=== PATIENT | female | born 1965 | race Caucasian/White ===

== ENCOUNTER → 2020-12-26 06:00 | Outpatient (CLI) | payer MEDICAID, SELFPAY ==
[2020-12-14 14:42] VITALS: BMI 32.1
--- NOTE | 2020-12-26 06:03 | ECHOCS_ITS ---
Reason For Study: Arrhythmia Procedure This was a 2D Doppler, Color Flow transthoracic echocardiogram. Contrast injection was performed. Exam performed in department. Left Ventricle Normal LV size. Left ventricular systolic function is normal. The estimated ejection fraction is 60 %. Stage 1 diastolic dysfunction. No regional wall motion abnormalities noted. Right Ventricle Normal RV size. Normal systolic function. Atria Normal left atrium. Normal right atrium. Mitral Valve Normal mitral valve. Mild (1+) mitral valve insufficiency. Tricuspid Valve Normal tricuspid valve. Mild tricuspid valve insufficiency. Pulmonary artery systolic pressure is 20 mmHg. Aortic Valve Trisinus/trileaflet aortic valve. Mild (1+) aortic valve insufficiency. Pulmonic Valve Normal pulmonic valve. Great Vessels Normal aortic root. The pulmonary artery is normal size. Normal inferior vena cava. Pericardium/Pleural No pericardial effusion. Medication Diluted definity 2ml given slow IV push to enhance endocardial definition. MMode/2D Measurements & Calculations LVIDd: 5.0 cm IVSd: 0.86 cm Ao root diam: 3.0 cm LVIDs: 2.8 cm LVPWd: 0.82 cm RVDd: 2.1 cm FS: 43.7 % LAV(MOD-bp): 29.7 ml LVAd ap4: 25.5 cm2 SV(MOD-sp4): 56.4 ml LAV(MOD-bp) Indexed: 14.8 ml/m2 EDV(MOD-sp4): 81.2 ml LAV(MOD-sp2): 18.6 ml EDV(sp4-el): 83.1 ml LAV(MOD-sp4): 42.3 ml LVAs ap4: 12.1 cm2 ESV(MOD-sp4): 24.8 ml ESV(sp4-el): 23.8 ml EF(MOD-sp4): 69.5 % EF(sp4-el): 71.3 % SV(sp4-el): 59.3 ml LA A4 area: 16.8 cm2 LA dimension(2D): 3.5 cm RA A4 area: 8.5 cm2 Doppler Measurements & Calculations MV E max quinton: 60.8 cm/sec Lat Peak E' Quinton: 8.7 cm/sec Med Peak E' Quinton: 4.6 cm/sec MV A max quinton: 63.8 cm/sec E/E' lat: 7.0 E/E' med: 13.3 MV E/A: 0.95 Ao V2 max: 151.0 cm/sec LV V1 max: 117.0 cm/sec PA V2 max: 89.9 cm/sec Ao max P.1 mmHg LV V1 max P.5 mmHg Ao V2 mean: 96.8 cm/sec Ao mean P.2 mmHg Ao V2 VTI: 29.2 cm TR max quinton: 199.6 cm/sec TR max P.9 mmHg ECHO/Echo Complete W/ Contrast Interpretation Summary Normal LV size. Left ventricular systolic function is normal. The estimated ejection fraction is 60 %. Stage 1 diastolic dysfunction. Mild (1+) aortic valve insufficiency. Contrast injection was performed. Ordering Physician: Massimo Fitzgerald Referring Physician: Laura Dacosta Performed By: Celi Osuna, RDCS, RVT
--- NOTE | 2020-12-26 13:18 | STRESSREP ---
Stress Test Report Exercise myocardial perfusion stress test. 55-year-old lady with a history of restrictive lung disease sleep apnea and gallbladder issues scheduled for cholecystectomy. Resting EKG demonstrates sinus bradycardia with a rate of 57 bpm nonspecific changes noted. Resting blood pressure is 98/64 mmHg. The patient exercised according to the regular [place] protocol for 5 minutes and 15 seconds the maximum heart rate attained was 121 bpm which was 73% of max impacted heart rate. The patient took her atenolol prior to the test. The maximum workload was 7 metabolic equivalents. At rest there were nonspecific ST changes noted and at peak exercise less than 1 mm of downsloping and T wave inversions were noted which did not meet the criteria for ischemia. The test was terminated due to shortness of breath no angina was noted. The peak blood pressure was 120/72 mmHg. Myocardial perfusion protocol. 11.8 mCi of technetium 99m sestamibi was injected at rest. The patient exercised according to the regular [place] protocol for 5 minutes and 15 seconds and at peak exercise 33.1 mCi of technetium 99m sestamibi was injected stress images were obtained stress and rest images were reconstructed and compared in the short axis vertical long and horizontal long axis. Gated images were also obtained. Perfusion SPECT analysis: Review of the stress images demonstrate normal uptake of tracer noted in all areas of the myocardium. The resting images similar demonstrate normal uptake of tracer noted in all areas of the myocardium. No areas of reversibility are noted to suggest ischemia and no previous infarct is noted. Gated SPECT analysis: The gated ejection fraction is 76%. Conclusion: Normal exercise myocardial perfusion stress test at a moderate workload. Preserved ejection fraction. Mild functional aerobic impairment.
== END ==
PROVIDERS: PCP Internal Medicine; Referring Provider Internal Medicine Cardiovascular Disease; Visit Provider Internal Medicine Cardiovascular Disease
DX: Z01.810 Encounter for preprocedural cardiovascular examination (principal); R94.31 Abnormal electrocardiogram [ECG] [EKG]
CPT/HCPCS: 78452; 93017; 93306; A9500; Q9957; A4216; C8929

== ENCOUNTER 2021-01-17 10:02 | Day surgery (SDC) | payer MEDICAID, SELFPAY ==
--- NOTE | 2020-12-04 17:33 | PCM.HP.BLA ---
History and Physical Date of Admission: 12/06/20 Laverne Ng Proper a 55 year old female who presents with RUQ and epigastric pain. She recently underwent EGD and found to have no major pathology. She wishes to proceed with laparoscopic cholecystectomy, possible cholangiograms. ? 10/26/2020 11:41 AM GALLBLADDER ULTRASOUND: Clinical Statement: Abdominal pain. Comparison: None. FINDINGS: The visualized pancreas is unremarkable.] Duct dilatation. The liver measures 20 cm in length. Hepatic parenchymal echogenicity is mildly increased overall with coarsening of the echotexture. No focal liver mass or intrahepatic bile duct dilatation. The common duct diameter is within normal limits at 5 mm. There multiple dependent layering shadowing gallstones within the gallbladder. No gallbladder wall thickening or pericholecystic fluid. Negative sonographic Ch's. No ascites. IMPRESSION: 1. Cholelithiasis. No secondary sonographic features of acute cholecystitis. 2. Enlarged liver with diffuse hepatic steatosis or other nonspecific chronic hepatocellular disease. ? ?? Pain located in the mid-epigastric and radiates intermittently toward the back and sometimes into the lower abdomen. Described as sharp. Abdomen is reported to be tender to touch. Generalized, with worst over RUQ. ? Reporting chronic constipation. She has tried all the OTC laxatives but they just bloat me up bigger and make things worse. This is just the way I have been since I was a kid . Notes suppositories were about the only thing that helps. Reports using Benefiber. No prior use of lactulose. ? She tells me that she can go up to a month without a bowel movement. The last bowel movement was 2 days ago. Describes stool as 3 hard balls and that was it. Reports that she might see a little blood with hard stool. ? Reporting her appetite varies based on bowel routine. Nausea all the time if I am bound up. Goes on to say I choke on food all the time. Taking omeprazole daily. ? ? PAST MEDICAL HISTORY ? Anxiety and depression ? ? Chronic back pain ? ? Constipation ? ? Fibromyalgia ? ? HLD (hyperlipidemia) ? ? Hypotension ? ? Hypothyroidism ? ? Migraine ? ? JC (obstructive sleep apnea) 01/27/2014 ? Restrictive lung disease ? ? TMJ dysfunction 07/03/2017 ? Unspecified sinusitis (chronic) ? ? PAST SURGICAL HISTORY ? DELIVERY ONLY ? 1994 ? COLONOS W/REM POLYP SNARE ? 03/26/12 ? hyperplastic polyp ? EGD W/O BRSH SPECIMEN W/BX ? 03/26/12 ? EXTENSIVE JAW SURGERY ? 1981 ? bilateral TMJ surgery ? FOOT SURGERY HX Bilateral 1985 ? bunion ? REMOVE TONSILS/ADENOIDS,12+ Y/O ? ? ? TOTAL ABD HYSTEREC+LTD NODES ? 2002 ? SHARMILA, left SO; menorrhagia CURRENT MEDICATIONS ? promethazine (PHENERGAN) 25 mg tablet Take 1 tablet by mouth every 6 hours as needed for Nausea/Vomiting. 20 tablet 1 ? atorvastatin (LIPITOR) 10 mg tablet TAKE 1 TABLET BY MOUTH EVERY DAY IN THE EVENING 30 tablet 2 ? omeprazole (PRILOSEC) 40 mg capsule Take 1 capsule by mouth once daily. 30 capsule 5 ? bisacodyl (DULCOLAX, BISACODYL,) 10 mg supp 1 Suppository by RECTAL route once daily as needed. 5 Suppository 5 ? Bisacodyl (LAXATIVE, BISACODYL,) 5 mg tab Please take 1 to 2 tablets 2 times a week 20 tablet 3 ? levothyroxine (SYNTHROID) 88 mcg tablet Take 1 tablet by mouth daily before breakfast. 30 tablet 11 ? cholecalciferol (VITAMIN D-3) 5,000 unit tab Take 1 tablet by mouth once daily. 30 tablet 5 ? traZODone (DESYREL) 100 mg tablet TAKE 2 TABLETS BY MOUTH EVERY DAY AT BEDTIME 180 tablet 3 ? atenolol (TENORMIN) 50 mg tablet Take 1 tablet by mouth once daily. 30 tablet 11 ? venlafaxine ER (EFFEXOR XR) 150 mg 24 hr capsule TAKE 2 CAPSULES BY MOUTH EVERY DAY 180 capsule 3 ? topiramate (TOPAMAX) 100 mg tablet Take 100 mg by mouth twice daily. ? busPIRone (BUSPAR) 5 mg tablet TAKE 1 TABLET BY MOUTH TWICE DAILY NEEDED 60 tablet 1 ? buPROPion SR (WELLBUTRIN SR) 100 mg 12 hr tablet TAKE 1 TABLET BY MOUTH TWICE DAILY 60 tablet 1 ? ? SOCIAL HISTORY: Patient is . She quit smoking 04/2018. Reports her alcohol use as every 2-3 months. ? ? FAMILY HISTORY ? Diabetes Mother ? ? Heart Mother ? ? Cancer Mother ? ? r leg cancer ? Hypertension Mother ? ? Stroke Mother ? ? COPD Father ? ? Emphysema Father ? ? Cancer Sister ? ? Non Hodgkins Lymphoma ? Diabetes Sister ? ? Colon Cancer Maternal Aunt ? ? Diabetes Maternal Aunt ? ? Heart Maternal Grandfather ? ? Skin Cancer Maternal Grandmother ? REVIEW OF SYSTEMS: GENERAL: No weight loss, malaise or fevers RESPIRATORY: Negative for cough, hemoptysis, wheezing, COPD, dyspnea or shortness of breath CARDIOVASCULAR: No chest pain or MCCLELLAN. History of hypotension. GI: As reported above : No history of dysuria, frequency or incontinence CERTIFIED PHARMACY TECH: history of hysterectomy MUSCULOSKELETAL: Fibromyalgia and chronic back pain. .Slightly worse since recently moved and unpacking boxes PSYCH: Positive for depression and anxiety HEMATOLOGY/LYMPHOLOGY Negative for prolonged bleeding, bruising easily or swollen nodes ENDOCRINE: Positive for hypothyroidism NEURO: Migraine headaches ? PHYSICAL EXAMINATION: Blood pressure 110/72, pulse 71, height 168 cm (5' 6.14), weight 90.7 kg (200 lb), SpO2 98 %. General Appearance: Well appearing, alert, in no acute distress, well-hydrated, well nourished. Skin: Skin color, texture, turgor normal, no suspicious rashes or lesions. Head: Normocephalic, no abnormalities. Eyes: Anicteric sclera. Neck: Supple, no adenopathy. Lungs: Lungs clear to auscultation. Heart: RRR without murmur. Abdomen: Abdomen soft, non-tender. Bowel sounds normal. No masses, organomegaly. Extremities: No deformities, edema, skin discoloration Peripheral Pulses: Normal. Neurologic: Gait normal. Sensation grossly intact. ? Impression: upper abd pain 2)cholelithiasis ? Plan: I have discussed the above with the patient. I have offered the patient the procedure of laparoscopic cholecystectomy, possible cholangiograms. I have explained the procedure to the patient. I have counseled the patient as to the risks of the procedure, including but not limited to: infection, bleeding, injury to any blood vessels/nerves, scar tissue, injury to any intraabdominal organs, injury to kidney/ureters, injury to bowel/bladder, injury to the common bile duct/biliary tree, bile leakage, intraabdominal abscess/bleeding, hernias at incisional sites, wound infections, possible open procedure, complications of anesthesia, postoperative pneumonia/cardiac problems/blood clots etc. the patient understands. The patient was offered a surgery/procedure. The provider and patient have discussed in detail the risk of exposure to and/or potential harm posed by the COVID-19 virus with having a surgery/procedure at this time versus the risk of delaying the surgery/procedure. It is not possible to know either the risk of delaying the surgery or procedure or chance of getting an infection with perfect accuracy, but a joint decision was made between the patient and the provider to proceed at this time with the scheduled surgery/procedure. She wishes to proceed. I have answered all questions to the patient?s satisfaction and the patient has no further questions.
--- NOTE | 2020-12-05 12:49 | EKG12_ITS ---
Test Reason : PREOP Blood Pressure : / mmHG Vent. Rate : 057 BPM Atrial Rate : 057 BPM P-R Int : 178 ms QRS Dur : 090 ms QT Int : 418 ms P-R-T Axes : 055 008 242 degrees QTc Int : [address] & T wave abnormality, consider anterolateral ischemia Abnormal ECG Confirmed by CLARE DESAI, SUSAN ([id number]), market editor DICK LAGUERRE ([id number]) on 12/06/2020 9:06:41 AM Referred By: Liz Garduno Confirmed By:SUSAN SPARKS MD
[2020-12-05 14:24] LABS: Hematocrit 38.5 % (37-47); Hemoglobin 12.2 g/dL (12.0-15.0); Mean Corp Hgb Conc 31.7 g/dL (32-36); Mean Corpuscular Hgb 28.6 pg (27.0-32.0); Mean Corpuscular Volume 90.4 fL (81-99); Mean Platelet Vol. 10.7 fl (6.2-12.0); Platelet Count 309 K/mm3 (150-450); RBC Distribution Width CV 13.1 % (11.6-14.6); RBC Distribution Width SD 42.8 fl (35.1-43.9); Red Blood Count 4.26 M/mm3 (4.2-5.4); White Blood Count 7.7 K/mm3 (4.4-11.0)
[2020-12-14 14:42] VITALS: BMI 32.1
--- NOTE | 2021-01-16 18:08 | PCM.HP.BLA ---
History and Physical Date of Admission: 01/17/21 Laverne Napoles presents for laparoscopic cholecystectomy. She was initially scheduled in November 2020, but? surgery was postponed due to anesthesia requesting cardiology consultation. Cardiology consultation was obtained and patient is cleared for surgery. Patient presents with upper abdominal pain and undergone GI workup of the following: GALLBLADDER ULTRASOUND:? Clinical Statement: Abdominal pain.? Comparison: None.? FINDINGS: The visualized pancreas is unremarkable.] Duct dilatation.? The liver measures 20 cm in length. Hepatic parenchymal echogenicity? is mildly increased overall with coarsening of the echotexture. No? focal liver mass or intrahepatic bile duct dilatation. The common duct? diameter is within normal limits at 5 mm.? There multiple dependent layering shadowing gallstones within the? gallbladder. No gallbladder wall thickening or pericholecystic fluid.? Negative sonographic Ch's.? No ascites.? IMPRESSION:? 1. Cholelithiasis. No secondary sonographic features of acute? cholecystitis.? 2. Enlarged liver with diffuse hepatic steatosis or other nonspecific? chronic hepatocellular disease.? ? EGD Impression:? - Normal examined duodenum.? - Gastritis. This was biopsied.? - Normal esophagus.? Colonoscopy Impression:? ?- Preparation of the colon was poor.?- One 6 mm polyp in the proximal sigmoid colon. Resected?and retrieved.?- The examination was otherwise normal.?- The distal rectum and anal verge are normal on?retroflexion view.? ?Pathology -? FINAL DIAGNOSIS? 1.? Antrum, biopsy (A) - Antral mucosa with no diagnostic abnormality.? 2.? 50 cm colon polyp, polypectomy (B) - Severely cauterized colonic mucosa? with features consistent with hyperplastic polyp.? ? Barium enema 04/02/12: IMPRESSION:? Normal single contrast Gastrografin enema.?? ? I have reviewed the procedure and pathology reports, as well as the images, with the patient.? ? Presenting complaint: abdominal pain . ? Pain located in the mid-epigastric and radiates intermittently toward the back and sometimes into the lower abdomen.? Described as sharp. Abdomen is reported to be tender to touch. Generalized, with worst over RUQ. ?? REVIEW OF SYSTEMS: GENERAL: No weight loss, malaise or fevers RESPIRATORY: Negative for cough, hemoptysis, wheezing, COPD, dyspnea or shortness of breath CARDIOVASCULAR: No chest pain or MCCLELLAN. History of hypotension.? 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 .Slightly worse since recently moved and unpacking boxes PSYCH: Positive for depression and anxiety HEMATOLOGY/LYMPHOLOGY Negative for prolonged bleeding, bruising easily or swollen nodes ENDOCRINE: Positive for hypothyroidism NEURO:? Migraine headaches ? PAST MEDICAL HISTORY depression? Chronic back pain? Constipation? Fibromyalgia? HLD (hyperlipidemia)? Hypotension? Hypothyroidism? Migraines? JC (obstructive sleep apnea)01/27/2014 Restrictive lung disease? TMJ [id number]/18/2017 Unspecified sinusitis (chronic)? ? PAST SURGICAL HISTORY DELIVERY ONLY 1994 COLONOS W/REM POLYP SNARE 03/26/12?hyperplastic polyp EGD W/O BRSH SPECIMEN W/BX 03/26/12 EXTENSIVE JAW SURGERY 1981?bilateral TMJ surgery FOOT SURGERY [id number] REMOVE TONSILS/ADENOIDS,12+ Y/O ? TOTAL ABD HYSTEREC+LTD NODES 2003TAH, left SO; menorrhagia ? FAMILY HISTORY FAMILY HISTORY? ?DiabetesMother? ?HeartMother? ?CancerMother? ? ?r leg cancer ?HypertensionMother? ?StrokeMother? ?COPDFather? ?EmphysemaFather? ?CancerSister? ? Non Hodgkins Lymphoma ?DiabetesSister? ?Colon CancerMaternal Aunt? ?DiabetesMaternal Aunt? ?HeartMaternal Grandfather? ?Skin CancerMaternal Grandmother? CURRENT MEDICATIONS ?promethazine (PHENERGAN) 25 mg tabletTake 1 tablet by mouth every 6 hours as needed for Nausea/Vomiting.20 tablet1 ?atorvastatin (LIPITOR) 10 mg tabletTAKE 1 TABLET BY MOUTH EVERY DAY IN THE FVIELLU30 tablet2 ?omeprazole (PRILOSEC) 40 mg capsuleTake 1 capsule by mouth once daily.30 capsule5 ?bisacodyl (DULCOLAX, BISACODYL,) 10 mg supp1 Suppository by RECTAL route once daily as needed.5 Suppository5 ?Bisacodyl (LAXATIVE, BISACODYL,) 5 mg tabPlease take 1 to 2 tablets 2 times a week20 tablet3 ?levothyroxine (SYNTHROID) 88 mcg tabletTake 1 tablet by mouth daily before breakfast.30 dchlge25 ?cholecalciferol (VITAMIN D-3) 5,000 unit tabTake 1 tablet by mouth once daily.30 tablet5 ?traZODone (DESYREL) 100 mg tabletTAKE 2 TABLETS BY MOUTH EVERY DAY AT [id number] tablet3 ?atenolol (TENORMIN) 50 mg tabletTake 1 tablet by mouth once daily.30 ?venlafaxine ER (EFFEXOR XR) 150 mg 24 hr capsuleTAKE 2 CAPSULES BY MOUTH EVERY [id number] capsule3 ?topiramate (TOPAMAX) 100 mg tabletTake 100 mg by mouth twice daily.? ?busPIRone (BUSPAR) 5 mg tabletTAKE 1 TABLET BY MOUTH TWICE DAILY [id number] tablet1 ?buPROPion SR (WELLBUTRIN SR) 100 mg 12 hr tabletTAKE 1 TABLET BY MOUTH TWICE DAILY60 tablet1 ? SOCIAL HISTORY: Patient is . She quit smoking 04/2018.? Reports her alcohol use as every 2-3 months. ?? PHYSICAL EXAMINATION: Blood pressure 110/72, pulse 71, height 168 cm (5' 6.14), weight 90.7 kg (200 lb), SpO2 98 %. General Appearance: Well appearing, alert, in no acute distress, well-hydrated, well nourished. Skin: Skin color, texture, turgor normal, no suspicious rashes or lesions. Head: Normocephalic, no abnormalities. Eyes: Anicteric sclera. Neck: Supple, no adenopathy. Lungs: Lungs clear to auscultation.? Heart: RRR without murmur. Abdomen: Abdomen soft, non-tender. Bowel sounds normal. No masses, organomegaly. Extremities: No deformities, edema, skin discoloration eral Pulses: Normal. Neurologic: Gait normal. Sensation grossly intact. ? Impression: upper abd pain? 2)cholelithiasis? ? Plan: Continue omeprazole..? ?? Hillary? Kait Roque RN SEMICONDUCTOR WAFERS SAW OPERATOR.SHOVEL LOADER OPERATOR Impression: cholelithiasis Discussion/Plan: I have discussed the above with the patient. I have offered the patient the procedure of laparsocopic cholecystectomy, possible cholangiograms. I have explained the procedure to the patient. I have counseled the patient as to the risks of the procedure, including but not limited to: infection, bleeding, injury to any blood vessels/nerves, scar tissue, injury to any intrabdominal organs, injury to kidney/ureters, injury to bowel/bladder, injury to the common bile duct/biliary tree, bile leakage, intraabdominal abscess/bleeding, hernias at incisional sites, wound infections, possible open procedure, complications of anesthesia, postoperative pneumonia/cardiac problems/blood clots etc. the patient understands. The patient was offered a surgery/procedure. The provider and patient have discussed in detail the risk of exposure to and/or potential harm posed by the COVID-19 virus with having a surgery/procedure at this time versus the risk of delaying the surgery/procedure. It is not possible to know either the risk of delaying the surgery or procedure or chance of getting an infection with perfect accuracy, but a joint decision was made between the patient and the provider to proceed at this time with the scheduled surgery/procedure. She wishes to proceed I have answered all questions to the patient?s satisfaction and the patient has no further questions.
[2021-01-17 10:42] VITALS: BP 96/66; PULSE 64; RESP 18; TEMP 36.6; O2SAT 99; BMI 31.6
[2021-01-17] MEDS: Lactated Ringers 1,000 ML 100 ML IV ×2 (10:58→13:11)
[2021-01-17] MEDS: Cefazolin 2 GM in 0.9% Normal Saline 100 ML IV (11:29)
--- NOTE | 2021-01-17 11:30 | RAD_ITS ---
STUDY: INTRAOPERATIVE CURRENT EXAM. REASON FOR EXAM: Female, 55 years old. LAPAROSCOPIC, CHOLECYSTECTOMY WITH IOC FLUOROSCOPY TIME (if supplied): ( 2 seconds ) minutes/seconds. One image was submitted. TECHNIQUE: An intraoperative cholangiogram was performed by the surgeon. Imaging was submitted. COMPARISON: None. FINDINGS: Limited examination. The distal portion of the common bile duct is visualized and is unremarkable. Contrast is seen within the duodenum. RAD/Cholangiogram/ O R,Initial IMPRESSION: Limited study. The distal portion of the common bile duct is unremarkable. Electronically Signed: Bruno Earl MD at 12:51 EDT , Service support ,
--- NOTE | 2021-01-17 11:30 | GALL_PTH ---
PATIENT: DESIRAE DELEON [place] [facility] [facility] [id number] AGE/SX: 55/F ROOM: RE01/17/[address]: Dr. Liz Garduno MD : [id number] BED: DIS: 01/17/2021 SPEC #: [id number] RECD: 01/17/21 13:26 STATUS: ERICA REFaheem #: [id number] JADA: 01/17/21 11:[address]: Liz Garduno DEPT: SURGICAL PATHOLOGY RECD BY: Cecilia Crowe ENTERED: 01/18/21 09:24 SP TYPE: TUYET DAVILA DR: Dr. Laura Dacosta MD Tissues: Gallbladder, NOS Procedures: Surgery Specimen Level III HEADER OPERATION: Laparoscopic cholecystectomy PRE-OP DIAGNOSIS: Cholelithiasis TISSUE SUBMITTED: Gallbladder and contents MICROSCOPIC DIAGNOSIS Gallbladder, cholecystectomy: Chronic cholecystitis and cholelithiasis. AM:yunior 01/19/2021 MICROSCOPIC DESCRIPTION Slides are reviewed. GROSS DESCRIPTION Received is one container labeled with the patient's name and designated gallbladder and contents. The specimen consists of a previously opened gallbladder measuring 8 cm in length and up to 3.5 cm in diameter. The external surface is pink-ohara, smooth and glistening for the most part. Focally it is granular, hemorrhagic and contains cautery artifact. The gallbladder contains green-yellow mucoid bile and multiple greenish stones measuring in aggregate 6 x 5.5 x 2 cm and 0.3 to 0.5 cm in greatest dimension. Also present in the container are multiple fragments of stone and sludge material. A few of the stones are also present in the cystic duct. The mucosa is bile-stained and without any mass lesions. The gallbladder wall measures up to 0.2 cm in thickness. Patent Searcher sections from the gallbladder and the cystic duct are submitted in one cassette. / KURT:yunior 01/18/21 TC:3 CPT: 75667
--- NOTE | 2021-01-17 12:38 | OP.PCM_ITS ---
Report of Operation Date of Procedure: 01/17/21 Pre-Operative Diagnosis: cholelithiasis Post-Operative Diagnosis: chronic cholecystitis, cholelithiasis Surgery/Procedure Performed:: laparoscopic cholecystectomy with cholangiograms Description of Surgical Findings:: normal IOC, chronic cholecystitis biomedical engineering technologist: Nona Saul Type of Anesthesia: General Anesthesiologist: Yariel Peoples Specimen's removed: gallbladder and contents Drains: none Estimated Blood Loss (mL): 20 ml Fluids Replaced: 1000 ml Description of Procedure: After informed consent was given, the patient was brought to the Operating Room. Appropriate time out protocol was followed. The patient was placed in the supine position. The patient was then placed under general endotracheal anesthesia by the anesthesia provider. The abdomen was then prepped with a sterile surgical skin preparation and sterile surgical drapes were placed. An area superior to the umbilical dimple was grasped with penetrating clamps and the skin and subcutaneous tissues were infiltrated with 0.25% marcaine with epinephrine. A skin incision was then made with a 15 blade scalpel. The anterior abdominal wall was elevated and a Veress needle was carefully inserted into the intraabdominal cavity. It was checked to be in the proper position with a normal saline drop test. A CO2 pneumoperitoneum was then created. Once this was achieved, then the Veress needle was removed and an 11mm trocar was placed in its stead. A 10mm laparoscope was then inserted into the trocar and careful attention was directed to the intraabdominal contents. There was no evidence of injury to any intraabdominal organs from insertion of the Veress needle or the trocar. Under direct visualization, a 5mm subxiphoid trocar and two lateral 5mm right subcostal trocars were placed. The skin and subcutaneous tissues at these sites were infiltrated with 0.25% marcaine with epinephrine prior to placement of these trocars. Attention was then directed to the right upper quadrant of the abdomen. Graspers were placed in the lateral trocars to grasp the distal aspect of the gallbladder and direct it cephalad and to grasp the gallbladder at Mae?s pouch and direct it laterally. Dissection then began on the proximal gallbladder continuing down to the area of the triangle of Calot to bluntly dissect out the cystic duct. The neck of the gallbladder was identified and blunt dissection continued to dissect out a segment of the cystic duct. A clip was then placed on the neck of the gallbladder. A small ductotomy was then made. A Ranfac catheter was brought in through a separate skin incision and placed into the cystic duct. An intraoperative cholangiogram was performed under fluoroscopy. The xray revealed no lesions in the common bile duct and good flow into the duodenum. The Ranfac catheter was then removed and two clips were placed proximal to the ductotomy and the cystic duct was then transected. The cystic artery was visualized and bluntly isolated and then two clips were placed proximally and one clip distally and then it was transected between the proximal and distal clips. The gallbladder was then from the liver bed using electrocautery. Once from the liver bed, it was brought out via the umbilical port. It was then forwarded to pathology for analysis. The liver bed was carefully examined. There was no evidence of bile leakage or bleeding. The cystic duct stump and cystic artery stump had their clips intact and there was no evidence of bile leakage or bleeding. The remainder of the abdomen was grossly normal. The CO2 was released and all trocars removed intact. The periumbilical fascia was approximated with a [id number] 0 vicryl suture. Because of inflammatory changes - surgicel was applied to the area. All skin incision were closed with 4-0 monocryl in a subdermal fashion. Cavilol and Steristrips were used to reinforce the skin closure. Sterile dressings were applied to all wounds. Spon ge, needle and instrument count was verified and correct at time of skin closure. The patient was extubated and brought to the Recovery Room in stable condition. Complications none noted Admit VTE Documentation VTE Present on Admission: Yes VTE Mechan Device Prophylaxis: SCD's
[2021-01-17] MEDS: Bupiv/Epi 0.25% 30 ML Vial (12:44)
--- NOTE | 2021-01-17 12:53 | EX.PCM.DISCH ---
Discharge Instructions Outpatient Procedure Reason For Visit: [facility] Follow Up Care Test Results: Test results from this visit will be discussed in further detail at your follow-up appointment, if applicable. Discharge Plan Admission Attending Provider: Liz Garduno Primary Care Provider: Laura Dacosta Instructions Additional Instructions / Restrictions: Recommended pain control regimen - May take 600 mg ibuprofen (Motrin) and then in 3-4 hours, may take 650 mg acetaminophen (Tylenol), then in 3-4 hours may take 600 mg ibuprofen, then in 3-4 hours may take 650 mg acetaminophen and so on for 2-3 days May take narcotic pain medication for pain that is not controlled by above and at night for comfort through the night Leave dressings in place May get dressings wet in shower - do not scrub in the area and pat dry Do not soak - no tub baths/swimming Ice applied to areas of discomfort may help No lifting/pushing/pulling greater than 20 pounds for two weeks. Please call for a follow up appointment in 1-2 weeks, If you have any questions during the day - 8-4:30 M-F please call at . Discharge Orders/Prescriptions Prescriptions: New hydrocodone-acetaminophen 5-325 mg tablet 1 tab PO Q8H 5 Days Qty: 15 RF: 0 No Action levothyroxine 88 mcg tablet 88 mcg PO DAILY RF: 0 promethazine 25 mg tablet 25 mg PO Q6H PRN (Reason: Nausea) RF: 0 cholecalciferol (vitamin D3) 125 mcg (5,000 unit) tablet 5,000 unit PO DAILY RF: 0 atorvastatin 10 mg tablet 10 mg PO QHS RF: 0 trazodone 100 MG tablet 200 mg PO QHS RF: 0 atenolol 50 mg tablet 50 mg PO DAILY RF: 0 bupropion HCl 100 mg tablet sustained-release 12 hr 100 mg PO BID RF: 0 omeprazole 20 MG capsule 40 mg PO DAILY RF: 0 topiramate 100 MG tablet 100 mg PO BID RF: 0 albuterol sulfate 1 PUFF inhaler 1 puff INHALATION Q6H PRN PRN (Reason: Sob &/Or Wheezing) RF: 0 venlafaxine 150 mg capsule,extended release 24hr 300 mg PO DAILY RF: 0 buspirone 5 mg tablet 5 mg PO BID PRN (Reason: Anxiety) RF: 0 Referrals: Laura Dacosta MD [Primary Care Provider] - Disposition Discharge Orders: Discharge Patient (Routine); Ordered 01/17/21 Ordered By: Dr. Liz Garduno
[2021-01-17 13:00] VITALS: BP 117/88; BP 96/66; PULSE 80; RESP 16; TEMP 36.1; O2SAT 99
[2021-01-17 13:15] VITALS: BP 128/75; BP 96/66; PULSE 74; RESP 16; O2SAT 96
[2021-01-17 13:30] VITALS: BP 107/78; BP 96/66; PULSE 76; RESP 16; O2SAT 100
[2021-01-17 13:45] VITALS: BP 127/81; BP 96/66; PULSE 69; RESP 16; TEMP 36.5; O2SAT 100
[2021-01-17] MEDS: HYDROcodone Bitartrate/Apap 5/325 Tablet PO (14:23)
[2021-01-17 15:49] VITALS: BP 122/72; BP 96/66; PULSE 66; RESP 16; TEMP 37; O2SAT 100
== END 2021-01-17 15:57 ==
LOC: SDC 10:03 → AC 10:03
PROVIDERS: Anesthesiology; PCP Internal Medicine; Referring Provider Surgery; Visit Provider Surgery
PROC: (CPT 47610; principal; 2021-01-17 11:10)
DX: K80.10 Calculus of gallbladder with chronic cholecystitis without obstruction (principal); Z20.822 Contact with and (suspected) exposure to COVID-19; I10 Essential (primary) hypertension; E78.5 Hyperlipidemia, unspecified; E03.9 Hypothyroidism, unspecified; M79.7 Fibromyalgia; M54.9 Dorsalgia, unspecified; G89.29 Other chronic pain; G47.33 Obstructive sleep apnea (adult) (pediatric); E66.9 Obesity, unspecified; Z68.31 Body mass index [BMI] 31.0-31.9, adult; Z79.890 Hormone replacement therapy; Z79.899 Other long term (current) drug therapy; Z87.891 Personal history of nicotine dependence
CPT/HCPCS: 00790; 47563; 36415; 74300; 76000; 84443; 85027; 87426; 88304; 93005; C9803; J7120; J2405